=== PATIENT | male | born 1960 | race Caucasian/White ===

== ENCOUNTER → 2017-03-30 | Outpatient (CLI) | payer OTHER ==
--- NOTE | 2017-03-30 09:31 | Diagnostic Imaging Report ---
PROCEDURE:US RETROPERITONEAL ( KIDNEY ). COMPARISON:Patients [facility], [place], US RETROPERITONEAL ( KIDNEY )., 04/22/2016, 9:41. INDICATIONS:Hypoplasia Of Kidney TECHNIQUE: Salmeron-scale and color sonographic images of the bilateral kidneys and bladder where obtained in transverse and longitudinal planes. FINDINGS: RIGHT KIDNEY: Absent LEFT KIDNEY: Measures 12.6 x 6.5 x 5.2 cm, cortex measures 2.5 cm Cysts: None Solid masses: None Stones: None Hydronephrosis: None Echogenicity: Normal Bladder: Normal with a left urinary jet. CONCLUSION: Normal solitary left kidney. Salvatore Cantu D.O. Dictated by: Salvatore Cantu D.O. on 03/30/2017 at 9:39 Electronically approved by: Salvatore Cantu D.O. on 03/30/2017 at 9:39
== END ==
LOC: US 07:56
PROVIDERS: ATTEND Urology
DX: Q60.5 Renal hypoplasia, unspecified (principal)
CPT/HCPCS: 76770

== ENCOUNTER 2020-04-02 09:36 | Emergency (ER) | payer OTHER ==
[~2020-04-02] VITALS: Ht 167.6 cm; Wt 121.1 kg
[2020-04-02] MEDS ORDERED: GUAIFENESIN/DEXTROMETHORPHAN LIQD 5 ML UDC PO PRN (10:30)
== END 2020-04-02 11:20 | disposition home or self-care (01) ==
LOC: ER 09:52
DX: U07.1 COVID-19 (principal); R06.02 Shortness of breath; R51.9 Headache, unspecified; I10 Essential (primary) hypertension; E11.9 Type 2 diabetes mellitus without complications; E78.5 Hyperlipidemia, unspecified; E03.9 Hypothyroidism, unspecified; K21.9 Gastro-esophageal reflux disease without esophagitis
CPT/HCPCS: 71045; 99283

== ENCOUNTER 2020-10-12 18:46 | Emergency (ER) | payer OTHER ==
[~2020-10-12] VITALS: Ht 168.9 cm; Wt 99.8 kg
[2020-10-12] MEDS ORDERED: KETOROLAC TROMETHAMINE 60 MG/2 ML VIAL IM ONE (19:15)
[2020-10-12] MEDS ORDERED: KETOROLAC TROMETHAMINE 60 MG/2 ML VIAL ONE (19:19)
[2020-10-12] MEDS ORDERED: PREDNISONE20 MG PO (19:40)
[2020-10-12] MEDS ORDERED: CEPHALEXIN500 MG PO (19:40)
[2020-10-12] MEDS ORDERED: TYLENOL # 31 EA PO (19:40)
[2020-10-12 19:50] VITALS: BP 126/74
== END 2020-10-12 19:50 | disposition home or self-care (01) ==
LOC: FSED 19:17
DX: M70.52 Other bursitis of knee, left knee (principal); I10 Essential (primary) hypertension; E03.9 Hypothyroidism, unspecified; K21.9 Gastro-esophageal reflux disease without esophagitis; E78.5 Hyperlipidemia, unspecified; E11.9 Type 2 diabetes mellitus without complications
CPT/HCPCS: 73562; 96372; 99283; J1885